=== PATIENT | male | born 1955 | race Caucasian/White ===

== ENCOUNTER 2017-05-13 07:05 | Emergency (ER) | payer BC, OTHER ==
[2017-05-13 07:38] VITALS: BP 138/57
[2017-05-13] MEDS ORDERED: ceFAZolin 1 GM Vial IVPUSH ONE (08:23)
[2017-05-13] MEDS ORDERED: Sodium Chloride 0.9% 10 ML Syringe FLUSH PRN (08:45)
--- NOTE | 2017-05-13 09:03 | EDM.PDOC ---
ED HPI GENERAL MEDICAL PROBLEM - General Chief Complaint: Laceration Stated Complaint: laceration Time Seen by Provider: 05/13/17 07:49 Source of Information: Reports: Patient History Limitations: Reports: No Limitations - History of Present Illness INITIAL COMMENTS - FREE TEXT/NARRATIVE: Patient fell at [employer] while working. 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 Sustained good sized laceration over right knee. Able to walk. Minimal discomfort per patient. No numbness/tingling in involved leg. Denies other injuries. Tetanus UTD. Right Knee Pain Score (Numeric/FACES): 5 - Related Data Allergies Allergy/AdvReac Type Severity Reaction Status Date / Time No Known Allergies Allergy Verified 05/13/17 07:23 Home Meds: Home Meds Budesonide/Formoterol [Symbicort 160-4.5 MCG] 1 puff INH DAILY 01/03/15 [History ] Cetirizine [ZyrTEC] 10 mg PO DAILY 01/03/15 [History] Losartan/Hydrochlorothiazide [Losartan-HCTZ 100-12.5 MG] 1 tab PO DAILY [History] Montelukast [Singulair] 10 mg PO DAILY 01/03/15 [History] Cholecalciferol (Vitamin D3) [Vitamin D3] 1,000 units PO DAILY 05/13/17 [History ] Ferrous Sulfate [Iron] 325 mg PO DAILY 05/13/17 [History] Past Medical History HEENT History: Reports: Allergic Rhinitis, Impaired Vision Cardiovascular History: Reports: Hypertension Respiratory History: Reports: COPD Gastrointestinal History: Reports: GERD, PUD Musculoskeletal History: Reports: None Psychiatric History: Reports: None Endocrine/Metabolic History: Reports: Obesity/BMI 30+ Hematologic History: Reports: Iron Deficiency Immunologic History: Reports: None Oncologic (Cancer) History: Reports: None - Infectious Disease History Infectious Disease History: Reports: Chicken Pox, Influenza, Measles, Mumps - Past Surgical History HEENT Surgical History: Reports: Adenoidectomy, Oral Surgery, Tonsillectomy Cardiovascular Surgical History: Reports: None Respiratory Surgical History: Reports: None GI Surgical History: Reports: Cholecystectomy, Hernia Repair/Other, Other (See Below) Other GI Surgeries/Procedures: umbilical hernia repair Male Surgical History: Reports: Vasectomy, Other (See Below) Other Male Surgeries/Procedures: vasectomy with reversal Musculoskeletal Surgical History: Reports: None Oncologic Surgical History: Reports: None Social & Family History - Tobacco Use Smoking Status *Q: Never Smoker Second Hand Smoke Exposure: No - Alcohol Use Days Per Week of Alcohol Use: 1 Number of Drinks Per Day: 4 Total Drinks Per Week: 4 - Recreational Drug Use Recreational Drug Use: No ED ROS GENERAL - Review of Systems Review Of Systems: See Below Constitutional: Reports: No Symptoms HEENT: Reports: No Symptoms Respiratory: Reports: No Symptoms Cardiovascular: Reports: No Symptoms GI/Abdominal: Reports: No Symptoms : Reports: No Symptoms Musculoskeletal: Reports: Joint Pain (mild, right knee), Joint Swelling (right knee) Skin: Reports: Wound (right knee) Neurological: Reports: No Symptoms Psychiatric: Reports: No Symptoms ED EXAM, SKIN/RASH Exam: See Below Exam Limited By: No Limitations General Appearance: Alert, WD/WN, No Apparent Distress, Obese Eye Exam: Bilateral Eye: EOMI, PERRL Head: Atraumatic, Normocephalic Neck: Supple Respiratory/Chest: No Respiratory Distress Peripheral Pulses: 2+: Posterior Tibial (L), Posterior Tibial (R) Neurological: Alert, Oriented, Normal Cognition, Normal Gait, No Motor/Sensory Deficits Psychiatric: Normal Affect, Normal Mood Skin: Warm, Dry, Normal Color, Wound/Incision (right knee) Location, Skin: Lower Extremity, Right Characteristics: Other (Large horizontal laceration, 12cm, full thickness. Patella and attached tendons visible. Clean, no obvious debris noted. Leg is NVI. ) Associated features: Tenderness (minimal), Swelling (mild) Comments: No active bleeding from wound. Course - Vital Signs Last Recorded V/S: Last Vital Signs Temp 37.1 C 05/13/17 07:10 Pulse 72 05/13/17 07:38 Resp 20 05/13/17 07:38 BP 138/57 L 05/13/17 07:38 Pulse Ox 93 L 05/13/17 07:38 - Orders/Labs/Meds Orders: Active Orders 24 hr Category Date Time Status Sodium Chloride 0.9% [Saline Flush] Med 05/13/17 08:45 Active 10 ml FLUSH ASDIRECTED PRN Medication Orders Sodium Chloride (Saline Flush) 10 ml FLUSH ASDIRECTED PRN PRN Reason: Keep Vein Open Last Admin: 05/13/17 08:46 Dose: 10 ml Meds: Medications Generic Name Dose Route Start Last Admin Trade Name Fidel PRN Reason Stop Dose Admin Sodium Chloride 10 ml 05/13/17 08:45 05/13/17 08:46 Saline Flush FLUSH 10 ml ASDIRECTED PRN Administration Keep Vein Open Discontinued Medications Generic Name Dose Route Start Last Admin Trade Name Fidel PRN Reason Stop Dose Admin Cefazolin Sodium 2 gm 05/13/17 08:23 05/13/17 08:45 Ancef IVPUSH 05/13/17 08:24 2 gm ONETIME ONE Administration - Re-Assessments/Exams Free Text/Narrative Re-Assessment/Exam: 05/13/17 09:55 Given severe degree of laceration with exposure of joint, it was decided that patient should be evaluated by Surgery. Joint capsule appears to be intact. from [place] is on-call surgeon this weekend and agreed to see patient. He will evaluate and perform surgical repair of the laceration. If he determines that there is joint capsule disruption, patient will then be referred to Orthopedics. It was agreed to given patient IV Ancef here prior to patient presenting to [place] to see . Patient declined pain medication. Will be driven to [place] by private vehicle and will accompany him. Laceration irrigated copiously by nursing staff prior to being bandaged to protect the site during drive. Departure - Departure Time of Disposition: 09:01 Disposition: DC/Tfer to Acute Hospital 02 Condition: Good Clinical Impression: Laceration of right knee Qualifiers: Encounter type: initial encounter Qualified Code(s): S81.011A - Laceration without foreign body, right knee, initial encounter - Discharge Information Referrals: Michael Snow, RN, TRAIN CLERK [Primary Care Provider] - Forms: ED Department Discharge Additional Instructions: [facility] Tell them you are there to see ' s, the surgeon. Most likely he will see you in one of the ER rooms. He will evaluate the wound and repair it unless it is determined that you have breached the joint capsule. If that is the case he will refer you to Ortho in [place]. Have him fill out your [employer] forms when finished for return to work instructions. - My Orders Last 24 Hours: My Active Orders 05/13/17 08:45 Sodium Chloride 0.9% [Saline Flush] 10 ml FLUSH ASDIRECTED PRN - Assessment/Plan Last 24 Hours: My Active Orders 05/13/17 08:45 Sodium Chloride 0.9% [Saline Flush] 10 ml FLUSH ASDIRECTED PRN
== END 2017-05-13 09:35 ==
LOC: LL.ED 07:05
DX: S81.011A Laceration without foreign body, right knee, initial encounter (principal); I10 Essential (primary) hypertension; J44.9 Chronic obstructive pulmonary disease, unspecified; Z79.899 Other long term (current) drug therapy; Z79.51 Long term (current) use of inhaled steroids; W01.0XXA Fall on same level from slipping, tripping and stumbling without subsequent striking against object, initial encounter; Y99.0 Civilian activity done for income or pay
CPT/HCPCS: 96374; 99284; J0690; J7050